=== PATIENT | female | born 1945 | race Caucasian/White ===

== ENCOUNTER 2024-02-27 13:20 | Day surgery (SDC) | payer MEDICARE, OTHER ==
[~2024-02-27] VITALS: Ht 160 cm; Wt 60.5 kg
[~2024-02-27 13:20] MED LIST: LR 1,000 ML IV SCH
[2024-02-27] MEDS ORDERED: Midazolam 2 MG/2 ML VIAL ONE (13:46)
[2024-02-27] MEDS ORDERED: Lidocaine PF 2% (20 MG/ML) 5 ML VIAL ONE ×2 (13:46→14:21)
[2024-02-27] MEDS ORDERED: fentaNYL 50 MCG/ML 2 ML VIAL ONE (13:46)
[2024-02-27] MEDS ORDERED: Ondansetron 4 MG/2 ML VIAL ONE (13:47)
[2024-02-27] MEDS ORDERED: Glycopyrrolate 0.2 MG/ML 1 ML VIAL ONE (13:47)
[2024-02-27] MEDS ORDERED: dexAMETHasone 10 MG/ML VIAL ONE (13:47)
[2024-02-27] MEDS ORDERED: NS 20 ML IV ONE (13:47)
--- NOTE | 2024-02-27 13:48 | NUR ---
SPOKE WITH CHOLO GUERIN CRNA. PATIENT HAS HAD A RIGHT RADICAL MASTECTOMY. PER CHOLO RESTREPO CRNA NURSING STAFF MAY START AN IV IN THE RIGHT HAND OR ARM.
[2024-02-27] MEDS ORDERED: Albuterol/Ipratropium 3 MG-0.5 MG/3 ML Neb Soln IH ONE (14:00)
[2024-02-27] MEDS ORDERED: ZOVIRAX 200MG200 MG PO (14:19)
[2024-02-27] MEDS ORDERED: CYTOMEL 5MC5 MCG/TAB PO (14:21)
[2024-02-27] MEDS ORDERED: TIROSINT50 MC1 PO (14:22)
[2024-02-27] MEDS ORDERED: TOPROL XL 25MG25 MG PO (14:22)
[2024-02-27] MEDS ORDERED: TIROSINT25 MC1 PO (14:24)
[2024-02-27] MEDS ORDERED: ARICEPT ODT10 MG PO (14:25)
[2024-02-27] MEDS ORDERED: NEXIUM 40MG40 MG PO (14:26)
[2024-02-27] MEDS ORDERED: LIPITOR20 MG PO (14:26)
[2024-02-27] MEDS ORDERED: STIOLTO RESPIMAT4 GM IH (14:28)
[2024-02-27 14:59] VITALS: BP 119/60; PULSE 83; TEMP 98.2
[2024-02-27] MEDS ORDERED: NS 100 ML IV ONE (15:32)
[2024-02-27] MEDS ORDERED: Phenylephrine 10 MG/ML VIAL ONE (15:32)
[2024-02-27] MEDS ORDERED: CEPHALEXIN500 M1 PO (16:26)
[2024-02-27] MEDS ORDERED: ULTRAM 50MG TAB50 MG PO (16:26)
[2024-02-27 16:45] VITALS: BP 144/75; PULSE 87; TEMP 97.1
--- NOTE | 2024-02-27 16:45 | NUR ---
PATIENT RETURNED TO ROOM 7 VIA CART ALERT AND ORIENTED X3. DENIES PAIN, NAUSEA AND SHORTNESS OF BREATH. BREATHING REGULAR AND UNLABORED ON 3L VIA NASAL CANNULA (BASELINE OXYGEN USE). SKIN WARM AND DRY. NURSE HANDOFF COMPLETED IN ROOM. VISIBLE CINDY WRAP/GAUZE TO LEFT FOREARM. DRESSING IS CLEAN, DRY AND INTACT. LEFT ARM SLING IN PLACE. ICE PACK TO LEFT ARM. LEFT HAND FINGERS ARE SWOLLEN AND WARM WITH CAPILLARY REFILL <3 SECONDS. PATIENT IS PLEASANT AND HAS NO COMPLAINTS. SHE HAD COFFEE AND APPLESAUCE. NO DYSPHAGIA. CALL LIGHT IN REACH. 1649: MET WITH PATIENT IN ROOM TO DISCUSS PROCEDURE AND FOLLOW UP CARE.
[2024-02-27 17:00] VITALS: BP 153/68; PULSE 89
[2024-02-27] MEDS ORDERED: Morphine 4 MG/ML VIAL IV SCH (17:00)
[2024-02-27 17:14] VITALS: BP 135/51; PULSE 75
[2024-02-27 17:30] VITALS: BP 130/60; PULSE 80
--- NOTE | 2024-02-27 17:50 | NUR ---
1720: DISCHARGE TEACHING COMPLETED WITH PRINTED EDUCATION AND INSTRUCTIONS SENT HOME WITH PATIENT. PATIENT INSTRUCTED TO CALL OFFICE AND SCHEDULE ONE WEEK FOLLOW UP APPOINTMENT. PATIENT VERBALIZED UNDERSTANDING. 1730: PATIENT CONNECTED TO PERSONAL PORTABLE OXYGEN DEVICE WITH 3L VIA NASAL CANNULA. AMBULATED TO RESTROOM WITH STEADY GAIT AND VOIDED. 1745: PATIENT DENIES PAIN, NAUSEA AND SHORTNESS OF BREATH. LEFT FOREARM DRESSING CLEAN, DRY AND INTACT. LEFT ARM SLING IN PLACE. LEFT HAND FINGERS WARM AND DRY, CAPILLARY REFILL <3 SECONDS. IV REMOVED. GAUZE AND COBAN PLACED OVER SITE. 1750: PATIENT THANKED STAFF FOR CARE AND WAS DISCHARGED HOME WITH SON, KAYKAY, TRANSPORT.
== END 2024-02-27 17:50 | disposition home or self-care (01) ==
LOC: SDCO 13:20
DX: S52.502A Unspecified fracture of the lower end of left radius, initial encounter for closed fracture (principal); K21.9 Gastro-esophageal reflux disease without esophagitis; Z87.891 Personal history of nicotine dependence; W19.XXXA Unspecified fall, initial encounter
CPT/HCPCS: C1713; J0690; J1100; J2250; J2371; J2405; J2704; J2765; J2795; J3010; J7120